=== PATIENT | female | born 1990 | race Caucasian/White ===

== ENCOUNTER 2020-12-04 | Emergency (ER) | payer MEDICAID ==
[~2020-12-04] VITALS: Ht 142.2 cm; Wt 57.8 kg
[2020-12-04 00:03] VITALS: BP 139/85
--- NOTE | 2020-12-04 00:20 | NUR ---
THIS IS A 29F THAT COMES IN FOR ABD PAIN X2YRS. PT REPORTS PAIN NEVER WENT AWAY AFTER HERNIA SX. ALSO STS SHE HAS RASH THROUGHOUT TRUNK, PT APPEARS SLIGHTLY MOTTLED, DENIES ITCHING. STS PAIN IS MORE RIGHT SIDED. WAS SEEN AT [facility] TWO DAYS AGO AND WAS ALSO SEEN AT [facility] TWO DAYS AGO FOR SAME. PT STS THE ONLY THING THAT HELPED HER PAIN WAS DILAUDID. ERP TO BEDSIDE FOR EVAL AND POC.
[2020-12-04] MEDS ORDERED: ONDANSETRON 2MG/ML, 2ML ONE (00:22)
[2020-12-04] MEDS ORDERED: MORPHINE SULFATE 4 MG/ML, 1ML ONE (00:22)
[2020-12-04] MEDS ORDERED: SODIUM CHLORIDE FLUSH 10ML SYR IVF ONE (00:30)
[2020-12-04] MEDS ORDERED: ONDANSETRON 2MG/ML, 2ML IVPush ONE (00:30)
[2020-12-04] MEDS ORDERED: MORPHINE SULFATE 4 MG/ML, 1ML IVPush PRN (00:30)
--- NOTE | 2020-12-04 00:36 | NUR ---
PT MEDICATED PER MAR AT THIS TIME
--- NOTE | 2020-12-04 00:38 | NUR ---
PT REQ NAUSEA MEDS. PT REMINDED SHE JUST GOT ZOFRAN. PT PAUSES AND SAYS "OH NO..OHH NO.. IT'S NOT WORKING." RN OFFERED TO REQ ADDITONAL NAUSEA MEDICATION... PT RESPONDS "NO NOT THAT THE PAIN MEDS THEY AREN'T WORKING.. WAS IT DILAUDID" PT REMINDED SHE GOT MORPHINE, STS "I NEED SOMETHING MORE PERHAPS DILAUDID, CAN YOU ASK THE DR FOR IT?"
[2020-12-04 00:42] LABS: BASOPHILS % (AUTO) 0 % (0-1); EOSINOPHILS % (AUTO) 0 % (1-7); LYMPHOCYTES % (AUTO) 13 % (22-44); MEAN CORPUSCULAR HEMOGLOBIN 31.4 pg (27.0-34.8); MEAN CORPUSCULAR HGB CONC 34.4 g/dL (32.4-35.8); MEAN PLATELET VOLUME 7.9 fL (7.4-10.4); MONOCYTES % (AUTO) 6 % (2-9); NEUTROPHILS % (AUTO) 80 % (42-75); PLATELET COUNT 318 x10^3/uL (130-400); RED BLOOD COUNT 5.55 x10^6/uL (3.82-5.3); RED CELL DISTRIBUTION WIDTH 13.1 % (9.6-15.2)
[2020-12-04 00:52] LABS: ALANINE AMINOTRANSFERASE 29 U/L (12-78); ALBUMIN 4.6 g/dL (3.4-5.0); ANION GAP 12 mmol/L (5-15); CALCIUM 10.1 mg/dL (8.5-10.1); CHLORIDE 102 mmol/L (98-107); CREATININE 1.04 mg/dL (0.55-1.02)
--- NOTE | 2020-12-04 00:56 | NUR ---
URINE SENT TO LAB AT THIS TIME. PT ASKS "WHEN WILL DR BE BACK" RN INFORMED HER HE IS WITH ANOTHER PT AND WILL BE IN TO SEE HER/ DISCUSS RESULTS AND RECORDS SHORTLY. PT BEGAN CRYING AND STS SHE JUST NEEDS HIM TO GIVE HER MORE MEDS. DESPITE CRYING WHILE RN AT BEDSIDE, PT NO LONGER CRYING WHEN RN LEFT ROOM.
[2020-12-04 00:57] LABS: ALKALINE PHOSPHATASE 111 U/L (45-117); TOTAL PROTEIN 9.6 g/dL (6.4-8.2)
[2020-12-04 01:04] LABS: MICROSCOPIC INDICATED
[2020-12-04 01:05] LABS: MD SCAN
[2020-12-04 01:11] LABS: AMPHETAMINE SCREEN, URINE Negative (Negative); BARBITURATE SCREEN, URINE Negative (Negative); BENZODIAZEPINE SCREEN, URINE Negative (Negative); CANNABINOID SCREEN, URINE Positive (Negative); COCAINE SCREEN, URINE Negative (Negative); METHADONE SCREEN, URINE Negative (Negative); OPIATE SCREEN, URINE Negative (Negative)
--- NOTE | 2020-12-04 01:34 | NUR ---
ERP PROVIDED RECORDS AT THIS TIME.
--- NOTE | 2020-12-04 01:45 | NUR ---
Patient/Caregiver given discharge instructions and they have confirmed that they understand the instructions. Patient ambulatory with steady gait.
== END 2020-12-04 01:51 | disposition home or self-care (01) ==
LOC: ED 01:44
DX: R07.2 Precordial pain (principal); R10.84 Generalized abdominal pain; R11.0 Nausea; F12.10 Cannabis abuse, uncomplicated; R94.31 Abnormal electrocardiogram [ECG] [EKG]
CPT/HCPCS: 36415; 71045; 80053; 80307; 81001; 83690; 84703; 85025; 87086; 93005; 96374; 96375; 99285; J2270; J2405